=== PATIENT | male | born 1935 | race Caucasian/White ===

== ENCOUNTER 2020-11-04 22:58 | Inpatient (IN) | payer MEDICARE, BC ==
[~2020-11-04] VITALS: Ht 175.3 cm; Wt 56.2 kg
[~2020-11-04 22:58] MED LIST: AMBIEN10 MG PO; ASCORBIC ACID500 MG PO; BAYER CHEWABLE81 MG PO; DONEPEZIL HCL5 MG PO; EFFEXOR37.5 MG PO; FIBERCON625 MG PO; FLOMAX0.4 MG PO; FLUTICASONE PRO16 GM NASAL; FOLBIC RF TABL1 EACH PO; MIRALAX17 GM PO; MYRBETRIQ50 MG PO; MYSOLINE 50 MG50 MG PO; PEPCID40 MG PO; PROSCAR5 MG PO; RESTASIS EYE DROPS EACH EYE; RESTASIS MULTI5.5 ML EACH EYE; TRAMADOL HCL E100 M1 PO; TRAZODONE HCL100 MG PO; VASOTEC2.5 MG PO; VITAMIN D325 MC1 PO; VOLTAREN100 GM TOPICAL; ZOCOR40 MG PO; ZOVIRAX200 MG PO
[2020-11-04 23:55] LABS: HEMATOCRIT 37.8 % (42.0-54.0); HEMOGLOBIN 12.8 g/dL (13.5-17.5); LYMPHOCYTES 26.8 % (15-50); MCH 30.3 pg (26.0-34.0); MCHC 33.9 g/dL (31.0-37.0); MCV 89.6 fL (80.0-100.0); MEAN PLATELET VOLUME 8.4 fL (7.4-10.4); NEUTROPHILS 63.2 % (40-80); PLATELET COUNT 254 10x3/uL (130-400); RBC 4.22 10x6/uL (4.20-6.10); RDW 14.7 % (11.5-14.5); WBC 6.4 10x3/uL (4.8-10.8)
[2020-11-05 00:02] LABS: APTT 29.7 SECONDS (22.8-39.4); INR 1.1 (0.85-1.17); PROTIME 13.1 SECONDS (11.6-15.0)
[2020-11-05 00:03] LABS: CALC OSMOLALITY 252 mosm/kg (275-300); CALCIUM 8.2 mg/dL (8.5-10.1); CARBON DIOXIDE 26.8 mmol/L (21.0-32.0); CHLORIDE - SERUM 94 mmol/L (98-107); CREATININE - SERUM 0.8 mg/dL (0.6-1.3); GLUCOSE 92 mg/dL (74-106); POTASSIUM - SERUM 3.9 mmol/L (3.5-5.1); SODIUM 126 mmol/L (136-145); UREA NITROGEN 12 mg/dL (7-18); eGFR NON AFRICAN AMERICAN > 90 mL/min (90-120)
[2020-11-05 00:09] LABS: ALBUMIN 3.2 g/dL (3.4-5.0); ALKALINE PHOSPHATASE 154 U/L (30-120); ALT (SGPT) 35 U/L (10-68); BILIRUBIN - TOTAL 0.15 mg/dL (0.2-1.3); PROTEIN - SERUM 6.9 g/dL (6.4-8.2)
[2020-11-05 00:46] VITALS: BP 148/79; BMI 18.4
[2020-11-05] MEDS ORDERED: PROTONIX40 MG PO (01:06)
--- NOTE | 2020-11-05 01:35 | NUR ---
[employer] HEAD FOR PATIENT REQUEST FOR SLEEP MEDICATION
--- NOTE | 2020-11-05 02:00 | NUR ---
NO INCENTIVE SPIROMETER PER [facility].
[2020-11-05 04:00] VITALS: BP 144/79
[2020-11-05 06:24] LABS: BASOPHILS 0.5 % (0-2); EOSINOPHILS 1.6 % (0-7); HEMATOCRIT 34.4 % (42.0-54.0); HEMOGLOBIN 11.6 g/dL (13.5-17.5); IMMATURE GRANULOCYTES 0.2 % (0-5); LYMPHOCYTE ABS# 1.13 10x3/uL (1.32-3.57); MCH 29.5 pg (26.0-34.0); MCHC 33.7 g/dL (31.0-37.0); MEAN PLATELET VOLUME 8.5 fL (7.4-10.4); MONOCYTES 9.9 % (2-11); NEUTROPHIL ABS# 3.83 10x3/uL (1.78-5.38); NEUTROPHILS 67.8 % (40-80); PLATELET COUNT 217 10x3/uL (130-400); RBC 3.93 10x6/uL (4.20-6.10); RDW 14.4 % (11.5-14.5); WBC 5.7 10x3/uL (4.8-10.8)
[2020-11-05 06:40] LABS: CALC OSMOLALITY 256 mosm/kg (275-300); CALCIUM 8.1 mg/dL (8.5-10.1); CARBON DIOXIDE 26.2 mmol/L (21.0-32.0); CHLORIDE - SERUM 97 mmol/L (98-107); CREATININE - SERUM 0.6 mg/dL (0.6-1.3); GLUCOSE 83 mg/dL (74-106); MAGNESIUM - SERUM 2.2 mg/dL (1.8-2.4); PHOSPHOROUS 3.2 mg/dL (2.5-4.9); POTASSIUM - SERUM 3.9 mmol/L (3.5-5.1); SODIUM 129 mmol/L (136-145); UREA NITROGEN 11 mg/dL (7-18); eGFR NON AFRICAN AMERICAN > 90 mL/min (90-120)
[2020-11-05 07:06] LABS: MCV 87.5 fL (80.0-100.0)
[2020-11-05 08:26] VITALS: BP 147/86
[2020-11-05 12:43] VITALS: BP 144/89
[2020-11-05 13:31] VITALS: Ht 175.3 cm; Wt 56.2 kg
[2020-11-05 17:43] VITALS: BP 139/91
[2020-11-05 19:53] VITALS: BP 138/99
--- NOTE | 2020-11-05 20:00 | NUR ---
PT SITTING UP IN BED WITHOUT DISTRESS, SON AT BEDSIDE. CONFUSED TO SITUATION AT TIMES. REQUESTING BENADRYL TONIGHT TO HELP SLEEP, STATES HE WANTS TO TAKE IT LATER THOUGH CLOSER TO TIME TO SLEEP. DENIES OTHER NEEDS. CL IN REACH
--- NOTE | 2020-11-05 21:30 | NUR ---
PT REQUESTED AND GIVEN BENADRYL. DENIES OTHER NEEDS, CL IN REACH
[2020-11-06 04:00] VITALS: BP 149/98
[2020-11-06 06:23] LABS: BASOPHILS 0.4 % (0-2); EOSINOPHILS 1.4 % (0-7); HEMATOCRIT 35.1 % (42.0-54.0); IMMATURE GRANULOCYTES 0.1 % (0-5); LYMPHOCYTES 14.2 % (15-50); MCH 30.2 pg (26.0-34.0); MCHC 34.2 g/dL (31.0-37.0); MCV 88.2 fL (80.0-100.0); MEAN PLATELET VOLUME 8.4 fL (7.4-10.4); MONOCYTES 9.6 % (2-11); NEUTROPHIL ABS# 5.24 10x3/uL (1.78-5.38); NEUTROPHILS 74.3 % (40-80); PLATELET COUNT 222 10x3/uL (130-400); RBC 3.98 10x6/uL (4.20-6.10); RDW 14.7 % (11.5-14.5); WBC 7.1 10x3/uL (4.8-10.8)
[2020-11-06 06:47] LABS: CALC OSMOLALITY 259 mosm/kg (275-300); CALCIUM 7.7 mg/dL (8.5-10.1); CARBON DIOXIDE 25.1 mmol/L (21.0-32.0); CHLORIDE - SERUM 98 mmol/L (98-107); CREATININE - SERUM 0.6 mg/dL (0.6-1.3); GLUCOSE 77 mg/dL (74-106); MAGNESIUM - SERUM 1.9 mg/dL (1.8-2.4); POTASSIUM - SERUM 3.6 mmol/L (3.5-5.1); SODIUM 131 mmol/L (136-145); eGFR NON AFRICAN AMERICAN > 90 mL/min (90-120)
[2020-11-06 06:48] LABS: UREA NITROGEN 7 mg/dL (7-18)
--- NOTE | 2020-11-06 07:55 | NUR ---
IN BED. EMPTIED HALEY BAG. 700 ML OUT. DENIES FURTHER NEEDS. BED LOW POSITION, CALL LIGHT IN REACH. WILL CONTINUE TO MONITOR.
[2020-11-06 08:17] VITALS: BP 132/82
[2020-11-06 12:12] VITALS: BP 143/85
[2020-11-06 17:30] VITALS: BP 147/93
--- NOTE | 2020-11-06 17:54 | NUR ---
CHECKED ON PATIENT. FAMILY AND PATIENT STARTED YELLING ABOUT HOW THEY WANTED TO GO HOME AND NURSE TOLD THEM THAT SHE WOULD GET IN TOUCH WITH THE IT SUPPORT ENGINEER RETAIL EVENT ASSISTANT. SPOKE TO ETHAN FAUST APRN. EXPLAINED THE SITUATION AND HE SAID HE WOULD COME TALK TO THE PATIENT AND FAMILY. AFTERWARDS THEY WANTED TO LEAVE AMA. PAPER SIGNED. IV REMOVED, CATH TIP INTACT. GATHERED BELONGINGS. LEFT UNIT VIA WHEELCHAIR TO HOME.
== END 2020-11-06 17:58 | disposition left against medical advice (07) | DRG 315 ==
LOC: D.ER 22:58 → D.MS 11-05 00:29 → OBSVTIME 11-05 00:30 → D.MS 11-05 14:16
PROVIDERS: Family Medicine; ADMIT Family Medicine; ATTEND Family Medicine
DX: R09.89 Other specified symptoms and signs involving the circulatory and respiratory systems (principal); E87.1 Hypo-osmolality and hyponatremia; R13.12 Dysphagia, oropharyngeal phase; D64.9 Anemia, unspecified; I10 Essential (primary) hypertension; I25.10 Atherosclerotic heart disease of native coronary artery without angina pectoris; N40.0 Benign prostatic hyperplasia without lower urinary tract symptoms; F03.90 Unspecified dementia, unspecified severity, without behavioral disturbance, psychotic disturbance, mood disturbance, and anxiety; E78.5 Hyperlipidemia, unspecified